=== PATIENT | female | born 2005 | race Two or more races ===

== ENCOUNTER 2024-07-13 23:53 | Emergency (ER) | payer MEDICAID, OTHER ==
[~2024-07-13] VITALS: Ht 157.5 cm; Wt 44.7 kg
[2024-07-14 00:46] LABS: Urine Bacteria FEW /hpf (None Seen); Urine Blood 3+ /uL (Negative); Urine Clarity Turbid (Clear); Urine Color Light-Orange (Yellow); Urine Mucus FEW (None Seen); Urine Protein, UAD 1+ (Negative); Urine Specific Gravity 1.023 (1.001-1.035); Urine Urobilinogen Normal (Negative); Urine WBC 18 /hpf (0 - 5); Urine pH 5.5 (5.0-9.0)
[2024-07-14 02:40] VITALS: PULSE 86; RESP 17; TEMP 98.4; O2SAT 100
[2024-07-14] MEDS: MORPHINE SULFATE INJ 2 MG/ml SYRG IM ONE (02:45)
[2024-07-14 03:15] VITALS: BP 115/67; PULSE 82; RESP 20
[2024-07-14] MEDS ORDERED: HYDR-4902 PO (03:25)
[2024-07-14] MEDS ORDERED: BACDST PO (03:25)
== END 2024-07-14 03:40 | disposition home or self-care (01) ==
LOC: ER 23:53
DX: N75.0 Cyst of Bartholin's gland (principal); N75.1 Abscess of Bartholin's gland
CPT/HCPCS: 56420; 72192; 81001; 96372; 99285; J2270